=== PATIENT | female | born 2000 | race Caucasian/White ===

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

== ENCOUNTER 2022-08-20 09:34 | Emergency (ER) | payer OTHER, MEDICAID, SELFPAY ==
--- NOTE | ~2022-08-20 | XR_ITS ---
EXAMINATION: XR CHEST CLINICAL INFORMATION: Chest pain COMPARISON: None available. TECHNIQUE: 2 views of the chest were obtained. FINDINGS: No significant abnormality is noted involving the heart, lungs, mediastinum, bony thorax or soft tissues. XR/XR chest 2V IMPRESSION: Unremarkable examination.
[2022-08-20 09:41] VITALS: BP 125/78; PULSE 94; RESP 16; TEMP 36.6; O2SAT 100; BMI 23.8
[2022-08-20 10:09] LABS: Appearance Urine Clear; Color Urine Yellow; Glucose Urine UA Negative (Negative); Leukocyte Esterase Urine Small (1+) (Negative); Nitrite Urine Negative (Negative); PH 6.5 (5.0-9.0); Specific Gravity - Urine 1.015 (1.005-1.025); UMIC TRIGGER UACC YES; Urine Blood Negative (Negative); Urine Ketones Negative (Negative); Urine Protein Negative (Neg-Trace)
[2022-08-20 10:15] LABS: UPreg QC Valid YES; Urine Pregnancy NEGATIVE (NEGATIVE)
[2022-08-20 10:17] LABS: Bacteria Urine Trace (None Seen); Hyaline Casts Urine 0-2 /LPF (0-2); RBC Urine 0-2 /HPF (0-2); UACC Culture Trigger YES; WBC Urine 0-5 /HPF (0-5)
--- NOTE | 2022-08-20 11:51 | ED.GENADULT ---
HPI - General Adult General Chief complaint: General Medical Stated complaint: Chest tightness Time Seen by Provider: 08/20/22 11:51 Source: patient Mode of arrival: ambulatory Limitations: no limitations History of Present Illness HPI narrative: Patient is a 22 year old assigned female at with no reported medical history presenting to the emergency department today with chest pain. Patient states that she has been having central chest pain and difficulty sleeping. Patient denies any dizziness, lightheadedness, abdominal pain, nausea, vomiting, fever, chills, blurry vision, double vision, loss of vision, difficulty breathing, shortness of breath, back pain, night sweats, pain with urination, increased urinary frequency, increased urinary urgency, blood in her urine or stool, syncope or a near syncopal episode, recent trauma or falls, bowel incontinence, bladder incontinence, bowel retention, bladder retention, or any other complaints at this time. Onset (ago): day(s) Severity: mild Severity scale (1-10): 2 Quality: dull Relieving factors: none Exacerbating factors: none Associated symptoms: denies other symptoms Treatments prior to arrival: none Related Data Previous Rx's Medication Instructions Recorded hydroxyzine HCl 25 mg tablet 25 mg PO TID PRN anxiety #20 tabs 02/14/21 Allergies Allergy/AdvReac Type Severity Reaction Status Date / Time No Known Allergies Allergy Verified 02/13/21 16:39 Review of Systems Constitutional: Constitutional: Reports no additional constitutional complaints, Denies chills, Denies fever(s) and Denies night sweats Eyes: Eyes: Reports no additional eye complaints, Denies blurry vision, Denies change in vision, Denies diplopia, Denies eye discharge, Denies loss of vision and Denies eye pain ENT: Denies dizziness Cardiovascular: Cardiovascular: Reports no additional cardiovascular complaints, Reports chest pain, Denies lightheadedness, Denies Loss of Consciousness and Denies dyspnea Respiratory: Respiratory: Reports no additional respiratory complaints and Denies dyspnea Gastrointestinal: Gastrointestinal: Reports no additional gastrointestinal complaints, Denies abdominal pain, Denies melena, Denies hematochezia, Denies change in bowel habits and Denies change in stool character Genitourinary: Genitourinary: Denies hematuria, Denies urinary frequency, Denies dysuria, Denies urinary incontinence, Denies urinary hesitancy and Denies urinary urgency Musculoskeletal: Musculoskeletal: Reports no additional musculoskeletal complaints, Denies numbness and Denies tingling Neurologic: Denies dizziness, Denies loss of vision, Denies numbness and Denies tingling Psychiatric: Psychiatric: Reports no additional psychiatric complaints Endocrine: Endocrine: Reports no additional endocrine complaints Hematologic/Lymphatic: Hematologic/Lymphatic: Reports no additional hematologic/lymphatic complaints Allergic/Immunologic: Allergic/Immunologic: Reports no additional allergic/immunologic complaints [facility] Past Medical History Attestation statement: The following information was validated with the patient. Source: old records reviewed and nursing notes reviewed Social History Social History Patient Tobacco Use Status: Never used Tobacco Use of substances other than those prescribed or required for medical reasons: Yes Substance Use Type: Marijuana Substance Use Frequency: Occasionally Advance Directives: No Advance Directives Information Provided: No Physical Exam ED Vital Signs: Vital Signs - 24 hr 08/20/22 09:41 08/20/22 12:54 Temperature 97.9 F 97.5 F Pulse Rate 94 73 Respiratory Rate 16 16 Blood Pressure 125/78 105/61 Pulse Oximetry 100 99 Oxygen Delivery Method Room Air Room Air BMI result Body Mass Index 23.8 Const General: cooperative, no acute distress, alert and awake Nutritional Appearance: well nourished Orientation/consciousness: patient oriented x3 Limitations: no limitations HENMT Head: Yes normal to inspection and Yes atraumatic Ears: hearing grossly normal bilaterally and external ears normal General nose exam: Normal external nose present, no nasal discharge noted and no epistaxis Face and sinus: Yes normal facial exam, No abrasion and No laceration Mouth: Normal oral and palatal mucosa present, no drooling and no muffled voice Eyes General: appearance normal, both eyes and all related structures Periorbital: periorbital findings normal Eyelids: Yes eyelids normal Conjunctivae: conjunctivae normal Pupils: Equal, round and reactive pupils present EOM: EOMs intact bilaterally Neck Neck: Yes normal visual inspection, Yes full ROM and Yes no lymphadenopathy Chest Chest palpation & inspection: normal inspection of the chest Resp Effort & Inspection: normal respiratory effort and able to speak in complete sentences Auscultation: clear to auscultation bilaterally Cardio Rate: regular rate Rhythm: regular rhythm GI Inspection: Yes normal to inspection Neuro General: patient oriented x3 and moves all extremities Cranial nerves: Yes Equal, round and reactive pupils present Cognition (Neuro): normal cognition Motor exam (neuro): 5/5 motor strength present throughout Sensory Exam: Normal double simultaneous stimulation for sensation Coordination: [id number] test normal Extrem General: Yes normal to inspection, Yes full ROM and Yes capillary refill normal Psych Appearance: grossly normal Mental Status: mental status grossly normal Affect: normal affect Attitude: cooperative Thought process: Normal thought process present Thought content: Normal thought content present Insight: Good insight present (Psych) Medical Decision Making Medical Decision Making [facility] Narrative: Patient is a 22 year old assigned female at with no reported medical history presenting to the emergency department today with chest pain and difficulty sleeping. Patient's physical exam was unremarkable. Patient's blood work was unremarkable. Patient's urine showed no acute process. Patient's EKG was unremarkable. Patient's chest x-ray showed no acute process. I explained my physical exam findings as well as all test results to the patient. I answered all questions asked by the patient. I stressed the importance of the patient taking her medication as prescribed. I stressed the importance of the patient following up with her primary care provider. I stressed the importance of the patient returning to the emergency department immediately if her symptoms were to worsen or if she were to develop any dizziness, shortness of breath, difficulty breathing, chest pain, blurry vision, loss of vision, nausea, vomiting, abdominal pain, fever, chills, back pain, or any other complaints. Patient verbalized agreement and understanding with this treatment plan and discharge. Differential Diagnosis Differential Diagnoses: The differential diagnosis associated with the presentation includes chest pain, anxiety Lab Data [facility] Lab Attestation statement: I reviewed the patient's lab results. 08/20/22 12:30 08/20/22 12:30 Labs: Lab Results 08/20/22 08/20/22 08/20/22 Range/Units 09:56 09:56 12:30 WBC 9.0 (4.8-10.8) X10*3/uL RBC 3.54 L D (4.20-5.50) X10*6/uL Hgb 11.8 L D (12.0-16.0) g/dl Hct 32.6 L D (37.0-47.0) % MCV 92.1 (80.0-98.0) fL MCH 33.3 H (27.0-33.0) pg MCHC 36.2 H (31.0-35.0) g/dl RDW 11.5 (11.0-16.0) % Plt Count 267 (160-400) X10*3/uL MPV 8.6 L (9.4-12.3) fL Immature Gran % (Auto) 0.2 (0.0-0.4) % Neut % (Auto) 56.3 (45-73) % Lymph % (Auto) 33.6 (20-40) % [place] % (Auto) 8.5 (2-11) % Eos % (Auto) 1.0 (0-4) % Baso % (Auto) 0.4 (0-2) % Lymph # (Auto) 3.0 (1.2-4.9) X10*3/uL [place] # (Auto) 0.8 (0.1-1.2) X10*3/uL Eos # (Auto) 0.1 (0.0-0.4) X10*3/uL Baso # (Auto) 0.0 (0.0-0.2) X10*3/uL Abs Immat Gran (auto) 0.02 (0.00-0.03) X10*3/uL Absolute Neuts (auto) 5.0 (2.0-8.3) x10*3/uL Absolute Nucleated RBC 0.000 (0.0-0.012) X10*3/uL Nucleated RBC % (auto) 0.0 (0.0-0.2) /100WBC Sodium (135-145) mmol/L Potassium (3.3-5.1) mmol/L Chloride (96-108) mmol/L Carbon Dioxide (22-29) mmol/L Anion Gap (12-20) BUN (9-16) mg/dL Creatinine (0.5-1.4) mg/dL Estim Creat Clear Calc Estimated GFR Random Glucose (60-115) mg/dL Calcium (8.4-10.2) mg/dL Magnesium (1.6-2.6) mg/dL Total Bilirubin (0.0-1.0) mg/dL AST (5-31) U/L ALT (0-31) U/L Alkaline Phosphatase (39-117) U/L Troponin I High Sens (<3.5-17.0) ng/L Total Protein (6.5-8.0) g/dL Albumin (3.5-5.0) g/dL Urine Color Yellow Urine Appearance Clear Urine pH 6.5 (5.0-9.0) Ur Specific [place] 1.015 (1.005-1.025) Urine Protein Negative (Neg-Trace) mg/dL Urine Glucose (UA) Negative (Negative) mg/dL Urine Ketones Negative (Negative) mg/dL Urine Blood Negative (Negative) Urine Nitrite Negative (Negative) Ur Leukocyte Esterase Small (1+) H (Negative) Urine RBC 0-2 (0-2) /HPF Urine WBC 0-5 (0-5) /HPF Ur Squamous Epith Cells 3-5 (0-2) /HPF Urine Bacteria Trace (None Seen) Hyaline Casts 0-2 (0-2) /LPF Urine Test NEGATIVE (NEGATIVE) COVID-19 (ELENI) (Negative) COVID-19 Clin Com 08/20/22 08/20/22 08/20/22 Range/Units 12:30 12:30 12:30 WBC (4.8-10.8) X10*3/uL RBC (4.20-5.50) X10*6/uL Hgb (12.0-16.0) g/dl Hct (37.0-47.0) % MCV (80.0-98.0) fL MCH (27.0-33.0) pg MCHC (31.0-35.0) g/dl RDW (11.0-16.0) % Plt Count (160-400) X10*3/uL MPV (9.4-12.3) fL Immature Gran % (Auto) (0.0-0.4) % Neut % (Auto) (45-73) % Lymph % (Auto) (20-40) % [place] % (Auto) (2-11) % Eos % (Auto) (0-4) % Baso % (Auto) (0-2) % Lymph # (Auto) (1.2-4.9) X10*3/uL [place] # (Auto) (0.1-1.2) X10*3/uL Eos # (Auto) (0.0-0.4) X10*3/uL Baso # (Auto) (0.0-0.2) X10*3/uL Abs Immat Gran (auto) (0.00-0.03) X10*3/uL Absolute Neuts (auto) (2.0-8.3) x10*3/uL Absolute Nucleated RBC (0.0-0.012) X10*3/uL Nucleated RBC % (auto) (0.0-0.2) /100WBC Sodium 138 (135-145) mmol/L Potassium 3.4 (3.3-5.1) mmol/L Chloride 107 (96-108) mmol/L Carbon Dioxide 26 (22-29) mmol/L Anion Gap 8 L (12-20) BUN 10 (9-16) mg/dL Creatinine 0.69 (0.5-1.4) mg/dL Estim Creat Clear Calc 102.9 Estimated GFR > 60 Random Glucose 79 (60-115) mg/dL Calcium 8.8 D (8.4-10.2) mg/dL Magnesium 1.7 (1.6-2.6) mg/dL Total Bilirubin 0.4 (0.0-1.0) mg/dL AST 37 H (5-31) U/L ALT 15 (0-31) U/L Alkaline Phosphatase 34 L (39-117) U/L Troponin I High Sens < 2.7 (<3.5-17.0) ng/L Total Protein 6.4 L (6.5-8.0) g/dL Albumin 3.6 (3.5-5.0) g/dL Urine Color Urine Appearance Urine pH (5.0-9.0) Ur Specific [place] (1.005-1.025) Urine Protein (Neg-Trace) mg/dL Urine Glucose (UA) (Negative) mg/dL Urine Ketones (Negative) mg/dL Urine Blood (Negative) Urine Nitrite (Negative) Ur Leukocyte Esterase (Negative) Urine RBC (0-2) /HPF Urine WBC (0-5) /HPF Ur Squamous Epith Cells (0-2) /HPF Urine Bacteria (None Seen) Hyaline Casts (0-2) /LPF Urine Test (NEGATIVE) COVID-19 (ELENI) Negative (Negative) COVID-19 Clin Com See Note Independent Interpretation I performed an independent interpretation of an: EKG and Plain X-Ray Interpretation: Vent. Rate: 052 BPM ? ? Atrial Rate: 052 BPM P-R Int: 154 ms? QRS Dur: 082 ms QT Int: 418 ms ? ? ? P-R-T Axes: -06 033 010 degrees QTc Int: 388 ms ? Sinus bradycardia Otherwise normal ECG When compared with ECG of 14-FEB-2021 15:58, Vent. rate has decreased BY? 58 BPM T wave inversion less evident in Inferior leads DD/ 1203 My interpretation is in agreement with the radiologist's impression of this imaging study. EXAMINATION: XR CHEST CLINICAL INFORMATION: Chest pain COMPARISON: None available. TECHNIQUE: 2 views of the chest were obtained. FINDINGS: No significant abnormality is noted involving the heart, lungs, mediastinum, bony thorax or soft tissues. XR/XR chest 2V IMPRESSION: Unremarkable examination. Dictated By: Za Colorado MD Signed By: Electronically signed by Za Colorado MD 08/20/22 [id number] Discharge Plan Discharge Clinical Impression: Chest pain Patient Disposition: Home, Self-Care Instructions: Chest Pain (DC) Additional Instructions: Follow up with your primary care provider. Return to the emergency department immediately if your symptoms worsen or if you develop any dizziness, shortness of breath, difficulty breathing, chest pain, blurry vision, loss of vision, nausea, vomiting, abdominal pain, fever, chills, back pain, or any other complaints. Prescriptions: No Action hydroxyzine HCl 25 mg tablet 25 mg PO TID PRN (Reason: anxiety) Qty: 20 0RF Referrals: [facility] [Provider Group] (Call to establish and follow up with a primary care provider. If you already have a primary care provider, please follow up with them.) [facility] [Provider Group] (Call to establish and follow up with a primary care provider. If you already have a primary care provider, please follow up with them.) [facility] [place] [facility] [Provider Group] (Call to establish and follow up with a primary care provider. If you already have a primary care provider, please follow up with them.) Stand Alone Forms: Work/School Release Print Language: Mozambican
--- NOTE | 2022-08-20 11:57 | ECG_ITS ---
Test Reason : cp Blood Pressure : / mmHG Vent. Rate : 052 BPM Atrial Rate : 052 BPM P-R Int : 154 ms QRS Dur : 082 ms QT Int : 418 ms P-R-T Axes : -06 033 010 degrees QTc Int : 388 ms Sinus bradycardia Otherwise normal ECG When compared with ECG of 14-FEB-2021 15:58, Vent. rate has decreased BY 58 BPM T wave inversion less evident in Inferior leads Referred By: Jane Boyce Electronically Signed By:MCKINLEY DAILEY
[2022-08-20 12:34] LABS: MANUAL DIFF FLAG NO
[2022-08-20 12:47] LABS: Basophils Percent Auto 0.4 % (0-2); Eosinophils Absolute Auto 0.1 X10*3/uL (0.0-0.4); Hematocrit 32.6 % (37.0-47.0); Imm Gran Abs Auto 0.02 X10*3/uL (0.00-0.03); Imm Gran Pct Auto 0.2 % (0.0-0.4); Lymphocytes Percent Auto 33.6 % (20-40); Mean Corpuscular HGB Conc 36.2 g/dl (31.0-35.0); Mean Corpuscular Hemoglobin 33.3 pg (27.0-33.0); Mean Corpuscular Volume 92.1 fL (80.0-98.0); Mean Platelet Volume 8.6 fL (9.4-12.3); Monocytes Absolute Auto 0.8 X10*3/uL (0.1-1.2); Monocytes Percent Auto 8.5 % (2-11); Neutrophils Percent Auto 56.3 % (45-73); Platelet Count 267 X10*3/uL (160-400); Red Blood Count 3.54 X10*6/uL (4.20-5.50); Red Cell Distribution Width 11.5 % (11.0-16.0)
[2022-08-20 12:50] LABS: Hemoglobin 11.8 g/dl (12.0-16.0)
[2022-08-20 12:53] LABS: COVID-19 Test Negative (Negative); IDNOW Serial# 08D9AD1C
[2022-08-20 12:54] VITALS: BP 105/61; PULSE 73; RESP 16; TEMP 36.4; O2SAT 99
[2022-08-20 12:54] LABS: Alanine Aminotransferase 15 U/L (0-31); Albumin Level 3.6 g/dL (3.5-5.0); Alkaline Phosphatase 34 U/L (39-117); Anion Gap 8 (12-20); Aspartate Amino Transferase 37 U/L (5-31); Bilirubin Total 0.4 mg/dL (0.0-1.0); Blood Urea Nitrogen 10 mg/dL (9-16); Calcium 8.8 mg/dL (8.4-10.2); Carbon Dioxide 26 mmol/L (22-29); Chloride 107 mmol/L (96-108); Creatinine Clr Calc Pharmacy 102.9; Estimated Glomerular Filt Rate > 60; Glucose Random 79 mg/dL (60-115); Magnesium 1.7 mg/dL (1.6-2.6); Potassium 3.4 mmol/L (3.3-5.1); Sodium 138 mmol/L (135-145); Total Protein 6.4 g/dL (6.5-8.0)
[2022-08-20 13:13] LABS: Troponin-I High Sensitivity < 2.7 ng/L (<3.5-17.0)
== END 2022-08-20 14:42 | disposition home or self-care (01) ==
PROVIDERS: Physician Assistant Medical; Emergency Provider Emergency Medicine Emergency Medical Services
DX: R07.9 Chest pain, unspecified (principal); G47.00 Insomnia, unspecified; Z20.822 Contact with and (suspected) exposure to COVID-19
CPT/HCPCS: 71046; 80053; 81001; 81025; 83735; 84484; 85025; 87086; 87635; 93005; 99284; 99285

== ENCOUNTER 2023-03-19 18:00 | Emergency (ER) | payer OTHER, SELFPAY ==
--- NOTE | ~2023-03-19 | XR_ITS ---
EXAMINATION: XR CHEST CLINICAL INFORMATION: Coughing COMPARISON: None available. TECHNIQUE: Frontal view of the chest was obtained. FINDINGS: No significant abnormality is noted involving the heart, lungs, mediastinum, bony thorax or soft tissues. XR/XR chest 1V IMPRESSION: Unremarkable chest examination.
[2023-03-19 18:17] VITALS: BP 117/67; PULSE 98; RESP 18; TEMP 37.4; O2SAT 97; BMI 27.1
--- NOTE | 2023-03-19 18:21 | ED.GENADULT ---
[facility] - General Adult General Chief complaint: General Medical Stated complaint: trouble breathing, throat pain, vomiting Time Seen by Provider: 03/19/23 19:11 Source: patient Mode of arrival: ambulatory History of Present Illness HPI narrative: 23-year-old female who presents with a positive sick contact, states that her chest is hurting after multiple episodes of coughing and this has made her throw up otherwise she reports so throat, headache and body aches. Related Data Previous Rx's Medication Instructions Recorded hydroxyzine HCl 25 mg tablet 25 mg PO TID PRN anxiety #20 tabs 02/14/21 Allergies Allergy/AdvReac Type Severity Reaction Status Date / Time No Known Allergies Allergy Verified 02/13/21 16:39 Review of Systems Review of Systems: Pertinent positives and negatives as stated in [facility] Past Medical History Source: nursing notes reviewed Social History Social History Patient Tobacco Use Status: Never used Tobacco Substance Use Type: Marijuana Advance Directives: No Advance Directives Information Provided: No Physical Exam ED Vital Signs: Vital Signs - 24 hr 03/19/23 18:17 Temperature 99.3 F Pulse Rate 98 Respiratory Rate 18 Blood Pressure 117/67 Pulse Oximetry 97 Oxygen Delivery Method Room Air BMI result Body Mass Index 27.1 VITAL SIGNS: Reviewed. GENERAL: Well developed, well nourished, in no acute distress. HEAD: Normocephalic/atraumatic EYES: PERRLA, EOMI EARS: Ext canals without abnormality, TMs non-bulging and non-erythematous NOSE: Nares patent bilateral OROPHARYNX: no oral lesions noted, posterior pharynx clear and non-erythematous without noted tonsillar enlargement/erythema/exudates NECK: Supple, no adenopathy LUNGS: Normal breath sounds, no tachypnea/wheeze/rhonchi/rales. SpO2<97> CARDIOVASCULAR: Regular rate and rhythm without noted murmurs ABDOMEN: Soft, non-tender, non-distended with bowel sounds. MUSCULOSKELETAL: No tenderness, deformities, or effusions noted on gross inspection. EXTREMITIES: No cyanosis, clubbing or edema. SKIN: Inspection of the skin reveals no rashes NEUROLOGIC: Alert and oriented x 4. Strength and sensation to light touch were grossly intact x 4. Course Course Course Narrative: RME: 23 yold female presents to the ED for sore throat, chest pain, subejctive fever and coughing since last . Xray and swabs ordered Medications Administered Discontinued Medications Generic Name Dose Route Start Last Admin Trade Name Anne Marie PRN Reason Stop Dose Admin Acetaminophen 975 mg 03/19/23 19:40 03/19/23 19:49 Acetaminophen 325 Mg Tablet PO 03/19/23 19:41 975 mg ONCE ONE Administration Benzonatate 200 mg 03/19/23 19:40 03/19/23 19:49 Benzonatate 100 Mg Capsule PO 03/19/23 19:41 200 mg ONCE ONE Administration Ibuprofen 400 mg 03/19/23 19:40 03/19/23 19:49 Ibuprofen 400 Mg Tablet PO 03/19/23 19:41 400 mg ONCE ONE Administration Medical Decision Making Medical Decision Making MDM Narrative: 23-year-old female with history and clinical presentation, DDX: Viral syndrome, strep pharyngitis I reviewed all investigations and viral testing is negative for influenza/COVID and rapid strep is negative. Chest x-ray is not significant for infiltrate and otherwise my interpretation is in agreement with radiology's impression. My interpretation is patient likely has a viral syndrome and she was provided with combination analgesics as well as cough medication and discharged home. Differential Diagnosis Differential Diagnoses: The differential diagnosis associated with the presentation includes Please see the discussion above Admission/Observation Consideration of admission/observation: Escalation of care including admission/observation considered Please see the discussion above Lab Data [facility] Lab Attestation statement: I reviewed the patient's lab results. Please see the discussion above Labs: Lab Results 03/19/23 03/19/23 Range/Units 18:31 18:32 Influenza Type A (PCR) NEGATIVE (Negative) Influenza Type B (PCR) NEGATIVE (Negative) RSV RNA Qual (PCR) NEGATIVE (Negative) SARS-CoV-2 RNA (RT-PCR) NEGATIVE (Negative) S. pyogenes GrpA ROSE Negative (Negative) Radiology Impression Discussion of test interpretation with radiology: I have reviewed the radiologist's reading. Radiologist Impression: Please see the discussion above External Record Review External record reviewed: Outpatient record, Prior outpatient labs and Prior outpatient radiology Critical Care Time Critical Care Time Critical Care Time: Yes Total Critical Care Time: 30 Attestation: I personally attest to this time spent taking care of the patient. Discharge Plan Discharge Clinical Impression: Viral syndrome Patient Disposition: Home, Self-Care Instructions: Viral Syndrome (ED) Additional Instructions: 1. Recommend elah-ukm-mrkgput Tylenol/ibuprofen as needed for headaches, body aches, temperatures greater than 100.4. 2. Get plenty of rest and drink plenty of fluids. 3. Follow-up with primary care doctor. Return to the ER for any worsening symptoms. Prescriptions: No Action hydroxyzine HCl 25 mg tablet 25 mg PO TID PRN (Reason: anxiety) Qty: 20 0RF Interventions: ED Discharge Assessment Last Done: 03/19/23 19:54 Discharge Date/Time: 03/19/23 19:54
[2023-03-19 18:52] LABS: IDNOW Serial# 08D9AD1C; Strep A Nucleic Acid Negative (Negative)
[2023-03-19 19:18] LABS: Influenza A PCR NEGATIVE (Negative); Influenza B PCR NEGATIVE (Negative); Resp Syncy Virus RNA Qual PCR NEGATIVE (Negative); SARS COV2 PCR INHOUSE NEGATIVE (Negative)
[2023-03-19] MEDS: Ibuprofen 400 MG TABLET PO (19:49)
[2023-03-19] MEDS: Benzonatate 100 MG CAPSULE 200 MG PO (19:49)
[2023-03-19] MEDS: Acetaminophen 325 MG TABLET 975 MG PO (19:49)
--- NOTE | 2023-03-19 19:51 | PC.NURSE ---
pt medicated per MAR
== END 2023-03-19 19:54 | disposition home or self-care (01) ==
PROVIDERS: Physician Assistant; Emergency Provider Student in an Organized Health Care Education/Training Program
DX: B34.9 Viral infection, unspecified (principal); R05.9 Cough, unspecified; R06.02 Shortness of breath; Z20.822 Contact with and (suspected) exposure to COVID-19; Z20.828 Contact with and (suspected) exposure to other viral communicable diseases
CPT/HCPCS: 0241U; 71045; 87651; 99283

== ENCOUNTER 2024-10-26 21:02 | Emergency (ER) | payer OTHER, SELFPAY ==
[2024-10-26 21:32] VITALS: BP 108/55; PULSE 85; RESP 18; TEMP 37.2; O2SAT 98; BMI 32.0
[2024-10-26 21:54] LABS: MANUAL DIFF FLAG NO
[2024-10-26 22:03] LABS: UPreg QC Valid YES
[2024-10-26 22:07] LABS: Alanine Aminotransferase 14 U/L (0-31); Albumin Level 4.3 g/dL (3.5-5.0); Alkaline Phosphatase 50 U/L (39-117); Anion Gap 12 (12-20); Aspartate Amino Transferase 20 U/L (5-31); Blood Urea Nitrogen 10 mg/dL (9-16); Calcium 9.1 mg/dL (8.4-10.2); Carbon Dioxide 24 mmol/L (22-29); Chloride 108 mmol/L (96-108); Creatinine Clr Calc Pharmacy 101.2; Estimated Glomerular Filt Rate > 60; Potassium 3.5 mmol/L (3.3-5.1); Sodium 140 mmol/L (135-145); Total Protein 7.3 g/dL (6.5-8.0)
[2024-10-26 22:14] LABS: Hematocrit 35.8 % (37.0-47.0); Hemoglobin 13.0 g/dl (12.0-16.0); Imm Gran Abs Auto 0.01 X10*3/uL (0.00-0.03); Imm Gran Pct Auto 0.1 % (0.0-0.4); Lymphocytes Absolute Auto 3.0 X10*3/uL (1.2-4.9); Mean Corpuscular HGB Conc 36.3 g/dl (31.0-35.0); Mean Corpuscular Hemoglobin 32.7 pg (27.0-33.0); Mean Corpuscular Volume 90.2 fL (80.0-98.0); NRBC Abs Auto 0.000 X10*3/uL (0.0-0.012); NRBC Pct Auto 0.0 /100WBC (0.0-0.2); Platelet Count 294 X10*3/uL (160-400); Red Blood Count 3.97 X10*6/uL (4.20-5.50); White Blood Count 7.0 X10*3/uL (4.8-10.8)
--- OUTSIDE RECORDS SUMMARY | 2024-10-26 23:28 | XMS_ITS | Clinical Summary ---
Author Organization [facility] Address [address] [address] Phone Care Team Providers Care Fishing Hand Name Role Phone Pcp, Unknown Primary Care Provider Unavailabl e Allergies No known active allergies Medications No known medications Social History Tobacco Use Types Packs/Day Years Used Date Smoking Tobacco: Never Passive Smoke Exposure: Never Smokeless Tobacco: Never Tobacco Cessation:Counseling Given: Not Answered Alcohol Use Standard Drinks/Week Comments Yes 0 (1 standard drink = 0.6 oz pur e alcohol) social Education Answer Date Recorded Are you interested in more education? Not on noel e 02/13/2024 Are you concerned about learning? Not on file 02/13/2024 No 02/13/2024 No 02/13/2024 Digital Access Answer Date Recorded No 02/13/2024 No 02/13/2024 Reliable internet access at home? Not on file 02/13/2024 Device with a working camera? Not on file Intimate Partner Violence Answer Date R ecorded Are you denied basic needs s uch as food, clothing, or medical care? No 02/13/2024 In the past 12 months have y ou been in a relationship with a person who hurts, threatens, or tries to control you? No 02/13/2024 Are you denied basic needs s uch as food, clothing, or medical care? No 02/13/2024 In the past 12 months have y ou been in a relationship with a person who hurts, threatens, or tries to control you? No 02/13/2024 Comments Unknown Sex and Gender Information Value Date Recorded Sex Assigned at Female 02/13/2024 2:40 PM EST Legal Sex Female 2:41 PM EST Gender Identity Female 02/13/2024 2:40 PM EST Sexual Orientation Straight 02/13/2024 2: 40 PM EST Last Filed Vital Signs Vital Sign Reading Time Taken Comments Blood Pressure 95/62 02/13/2024 6:15 PM EST Pulse 72 02/13/2024 6:15 PM EST Temperature 36.6 C (97.9 F) 02/13/2024 6:15 PM EST Respiratory Rate 16 02/13/2024 6:15 PM EST Oxygen Saturation 97% 02/13/2024 6:15 PM EST Inhaled Oxygen Concentration - - Weight 72.1 kg (159 lb) 02/13/2024 2:36 PM EST Height 157.5 cm (5' 2 ) 02/13/2024 2:36 PM EST Body Mass Index 29.08 02/13/2024 2:36 PM EST Plan of Treatment Health Maintenance Due Date Last Done Comments DEPRESSION SCREENING 2014 SMOKING Hx and SMOKELESS TOB ACCO SCREENING 2015 HPV VACCINES (1 - 3-dose series) 2017 CHLAMYDIA SCREENING 2018 MENINGOCOCCAL VACCINES (B) ( 1 of 2 - Standard) 2018 HEPATITIS C SCREENING 01/12/2020 HIV ONE-TIME SCREENING (18-6 5 YEARS) 01/12/2020 PAP SMEAR 2023 Adult Td,Tdap Booster 09/11/2023 09/10/2013 COVID-19 VACCINE (1 - 2023-2 5 season) 2023 HEPATITIS A VACCINES Aged Out No long er eligible based on patient's age to complete this topic HIB VACCINES Aged Out No longer eligi ble based on patient's age to complete this topic MENINGOCOCCAL VACCINES (ACWY) Aged Out No longer eligible based on patient's age to complete this topic PNEUMOCOCCAL VACCINES (0-49 years) Aged Out No longer eligible based on patient's age to complete this topic Medical Devices Not on file Insurance [facility] Member Subscriber Plan / Payer (Ef fective 2024-Present) Name:Nirav Cotton Relation to Subscriber:Self Name:Nirav Cotton Payer ID:Not on file Type:O Address: [place] [id number] Care Teams Fishing Hand Relationship Specialty Start Date End Date Pcp, Unknown PCP - General 02/13/24 Additional Source Comments The information contained in this document represents components of the legal health record. It is not the complete legal health record.[facility]
--- OUTSIDE RECORDS SUMMARY | 2024-10-26 23:28 | XMS_ITS ---
Author Name [facility] Organization Unknown Care Team Organization Name Specialty Phone Email Start Date End Da te [facility] Kerry Garcia Primary Care 10/03/20222023 [facility] Lidia, JEREMIAH Primary Care 06/05/202210/29 [facility] Isabella Lenz Primary Care 02/05/2022 11/17/2023
--- OUTSIDE RECORDS SUMMARY | 2024-10-26 23:28 | XMS_ITS | Clinical Summary ---
Author Organization [facility] Facility Address [address] [place] [id number] Care Team Providers Care Flight Controls Engineer Name Role Phone Destiny Gerber DANIELLE Primary Care Provider [phone] Family History Medical History Relation Comments Diabetes Father paternal grandpa rents Hypertension Father Diabetes Mother and maternal gra ndmother Heart disease Mother maternal grandfa ther Hypertension Mother and maternal gra ndmother Kidney disease Mother kidney stones, g randmother - kidney cancer Relation Status Comments Father Mother Social History Tobacco Use Types Packs/Day Years Used Date Smoking Tobacco: Never Alcohol Use Standard Drinks/Week Comments No 0 (1 standard drink = 0.6 oz pur e alcohol) Comments Unknown Sex and Gender Information Value Date Recorded Sex Assigned at Not on file Legal Sex Female 4:52 PM EST Gender Identity Not on file Sexual Orientation Not on file Plan of Treatment Health Maintenance Due Date Last Done Comments Hepatitis B Vaccine (1 of 3 - 19+ 3-dose series) 2021 Influenza Vaccine (#1) 2024 Pneumococcal Vaccine: Peds ( 0 to 5 Years) and At-Risk Patients (6 to 49 Years) Aged Out No longer eligible b ased on patient's age to complete this topic [facility] Care Teams Flight Controls Engineer Relationship Specialty Start Date End Date Destiny Gerber NP PCP - General Nurse Practitioner 07/18/20
--- OUTSIDE RECORDS SUMMARY | 2024-10-26 23:28 | XMS_ITS | Encounter Summary ---
Author Organization [facility] Address [address] [place] [address] Care Team Providers Care Nurse Wound Care Name Role Phone NayanIsabella ceballos Primary Care Provider [phone] Encounter Details Date Type Department Care Team (Late st Contact Info) Description 04/29/2024 Lab Requisition [facility] - Main Lab [address] Replaced By [facility] [place] [address] Brayden Bruno MD [address] [facility] [address] [place] [address] Urinary tract infection, site not specified Social History Tobacco Use Types Packs/Day Years Used Date Smoking Tobacco: Never Smokeless Tobacco: Never Alcohol Use Standard Drinks/Week Comments Yes 0 (1 standard drink = 0.6 oz pur e alcohol) Comments Unknown Sex and Gender Information Value Date Recorded Sex Assigned at Not on file Legal Sex Female 10:26 AM EST Gender Identity Not on file Sexual Orientation Not on file documented as of this encounter Plan of Treatment Not on file documented as of this encounter Procedures Procedure Name Priority Date/Time Associated Diagnosis Comments CULTURE URINE Routine 04/29/2024 2:30 PM EST Urinary tract infection, site not specified documented in this encounter Results * Culture urine (04/29/2024 2:30 PM EST) Culture, Urine No growth 04/30/2024 2:23 PM EST [facility] Urine Urine specimen obtained by clean catch procedure / Unknown Non-blood Collection / Unknown 04/29/2024 2:30 PM EST 04/29/2024 6:27 PM EST us Brayden Bruno MD LAB MICROBIOLOGY - GENERAL ORDERABLES Final Result [facility] [address] [place] [address], documented in this encounter Visit Diagnoses Diagnosis Urinary tract infection, site not specified documented in this encounter Care Teams Nurse Wound Care Relationship Specialty Start Date End Date Isabella Lenz DO [address] [place] [address] PCP - General Pediatrics 04/20/21 documented as of this encounter
--- OUTSIDE RECORDS SUMMARY | 2024-10-26 23:28 | XMS_ITS | Data Portability ---
Author Organization [facility] [address] Address [address] [place] [address] Assessment No assessment recorded. Plan of Treatment Reminders Order Date Submit Date Provider Last Modified By Organization Details Last Modified Time Details Appointments None recorded. Lab urinalysis , dipstick 2022 023 [email or web address] 247 [facility], [address] [place] [address], [phone], 3 09:32:08 test, urine 2022 023 [facility] _[facility], [address] [place] [address], [phone], 3 09:32:08 culture, urine 2022 023 [facility], [address] [place] [address], [phone], 3 09:47:45 Referral None recorded. Procedures None recorded. Surgeries None recorded. Imaging None recorded. Medication Orders Pyridium 100 mg tablet 2022 023 [facility] #[id number], [address] [place] [address], [id number], 3 09:32:27 Bactrim DS 800 mg-160 mg tablet 2022 023 [facility] #[id number], [address] [place] [address] St, [place], [phone], 09:32:27 Patient TargetsNo targets recorded. Patient InstructionsNo instructions recorded. Reason for Referral None Reported. Results Created Date Observation Date Name Description Value Unit Range Abnormal Flag Note LastModifiedBy Organization Detail LastModifiedTime 04/05/19 23 04/07/2022 URINE CULTU RE, ROUTI NE urine culture, routine FINAL REPORT Not Available [facility] ([facility]) [address] [place], [address], 04/07/2022 08:06:37 04/05/1904/07/2022 URINE CULTU RE, ROUTI NE result 1 COMMEN T Mixed uroge nital meredith 10,00 0-25, 000 colon y formi ng units per mL Not Available [facility] ([facility]) [address] [facility], [place], [address], 04/07/2022 08:06:37 04/05/19 23 04/05/2022 urina lysis , dipst ick Unknown Analyte Normal = light yellow Not Available [address], [address], 04/05/2022 08:57:24 04/05/19 23 04/05/2022 urina lysis , dipst ick Unknown Analyte Normal = clear Not Available [address] [place] [address], [address], 04/05/2022 08:57:24 04/05/19 23 04/05/2022 urina lysis , dipst ick Unknown Analyte Normal = negati ve Not Available [address] [place] [address], [address], 04/05/2022 08:57:24 04/05/19 23 04/05/2022 urina lysis , dipst ick Unknown Analyte Normal = Negati ve Not Available [address], [place], [address], 04/05/2022 08:57:24 04/05/1904/05/2022 urina lysis , dipst ick Unknown Analyte Normal = Negati ve Not Available [facility] [address], [place], [address], 04/05/2022 08:57:24 04/05/1904/05/2022 urina lysis , dipst ick Unknown Analyte Normal = 1.010, 1.015, 1.020 Not Available [facility] [address], [place], [address], 04/05/2022 08:57:24 04/05/19 23 04/05/2022 urina lysis , dipst ick Unknown Analyte Normal = Negati ve Not Available [facility] [address], [place], [address], 04/05/2022 08:57:24 04/05/1904/05/2022 urina lysis , dipst ick Unknown Analyte Normal = 6.5, 7.0, 7.5, 8.0 Not Available [facility] [address], [place], [address], 04/05/2022 08:57:24 04/05/1904/05/2022 urina lysis , dipst ick Unknown Analyte Normal = Negati ve Not Available [facility] [address], [place], [address], 04/05/2022 08:57:24 04/05/19 23 04/05/2022 urina lysis , dipst ick Unknown Analyte Normal = 0.2, 1.0 Not Available [address] [place] [address], [place], [address], 04/05/2022 08:57:24 04/05/19 23 04/05/2022 urina lysis , dipst ick Unknown Analyte Normal = Negati ve Not Available kiran dye [address], [place], [address], 04/05/2022 08:57:24 04/05/19 23 04/05/2022 urina lysis , dipst ick Unknown Analyte Normal = Negati ve Not Available kiran dye [address], [place], [address], 04/05/2022 08:57:24 04/05/19 23 04/05/2022 urina lysis , dipst ick Unknown Analyte Red Not Available veronica [address], [place], [place], [address], 04/05/2022 08:57:24 04/05/19 23 04/05/2022 urina lysis , dipst ick Unknown Analyte Other Not Available veronica [address], [place], [address], 04/05/2022 08:57:24 04/05/19 23 04/05/2022 urina lysis , dipst ick Unknown Analyte Negati ve Not Available kiran dye [address], [place], [address], 04/05/2022 08:57:24 04/05/19 23 04/05/2022 urina lysis , dipst ick Unknown Analyte Large Not Available veronica [address], [place], [address], 04/05/2022 08:57:24 04/05/19 23 04/05/2022 urina lysis , dipst ick Unknown Analyte 15 mg/dL Not Available kiran dye [address], [place], [address], 04/05/2022 08:57:24 04/05/19 23 04/05/2022 urina lysis , dipst ick Unknown Analyte 1.025 Not Available [facility] [address], [place], [address], 04/05/2022 08:57:24 04/05/19 23 04/05/2022 urina lysis , dipst ick Unknown Analyte Large Not Available [address], [place], [address], 04/05/2022 08:57:24 04/05/1904/05/2022 urina lysis , dipst ick Unknown Analyte 5.5 Not Available [address], [place], [address], 04/05/2022 08:57:24 04/05/19 23 04/05/2022 urina lysis , dipst ick Unknown Analyte 300 mg/dL Not Available kiran [address], [place], [address], 04/05/2022 08:57:24 04/05/19 23 04/05/2022 urina lysis , dipst ick Unknown Analyte 2.0 E.U./d L Not Available kiran [address], [place], [address], 04/05/2022 08:57:24 04/05/19 23 04/05/2022 urina lysis , dipst ick Unknown Analyte Negati ve Not Available kiran [address], [place], [address], 04/05/2022 08:57:24 04/05/19 23 04/05/2022 urina lysis , dipst ick Unknown Analyte Large Not Available chicope [address], [address], 04/05/2022 08:57:24 04/05/1904/05/2022 pregn samira test, urine Unknown Analyte Normal = Negati ve Not Available [address], [address], 04/05/2022 08:57:24 04/05/19 23 04/05/2022 pregn samira test, urine Unknown Analyte negati ve Not Available [address]99_[address] dye [address], [address], 04/05/2022 08:57:24 Result Notes None recorded. Problems No Known Problems Medical Equipment None Reported. Allergies No known drug allergies Medications Name Sig Start Date Stop Date Status Note LastModified by Organization Details LastModified Time Pyridium 100 mg tablet Take 1 tablet 3 times a day by oral route for 2 days. 2022 active Not Available Not Available Not Avai lable Bactrim DS 800 mg-160 mg tablet Take 1 tablet every 12 hours by oral route for 7 days. 2022 active Not Available Not Available Not Avai lable Estarylla 0.25 mg-0.035 mg tablet TAKE 1 TABLET BY MOUTH DAILY 04/05 completed Not Available Not Available Not Available BinaxNOW COVID-19 Ag Self Test kit TEST DIRECTED TODAY 04/05 completed Not Available Not Available Not Available Vitals Date Recorded Body height Body mass index (BMI) [Percentile] Per age and sex Body mass index (BMI) Body weight Body temperature Respiratory rate Heart rate Oxygen saturation Oxygen saturation in Arterial blood by Pulse oximetry Systolic And Diastolic Provider Name and Address Organization Details Last Updated DateTime 3 160.02 cm 77 % 24.8 kg/m2 42275.9 3 g 97.8 [degF] 18 /min 88 /min 100 % 100 % 108/73 mm[Hg] MANAV CROWLEY - [facility] 3 09:02:36 Social History Question Answer Notes LastModified by Organizat ion Details LastModified Time Tobacco Smoking Status Current Every Day Smoker CARLINE Stovall - [facility] 04/05/2022 09:00:24 What Is Your Water Source? City Information not available 04/05/2022 What Is Your Heat Source? Gas Information not available 04/05/2022 Have You Had Direct Contact, Or Contact During Intimacy, With Monkeypox Rash, Scabs, Or Body Fluids From A Person With Monkeypox? No Information not available 04/05/2022 Have You Recently Traveled Abroad? No Information not available 04/05/2022 Sex: Unknown Functional Status Question Answer Note LastModified by Organizat ion Details LastModified Time Do you use any illicit or recreational drugs? No Information not available 04/05/2022 Do you or have you ever used any other forms of tobacco or nicotine? No Information not available 04/05/2022 What is your level of alcohol consumption? Occasional Information not available 04/05/2022 Mental Status None recorded. Family History Relationship Description Onset Age of this Age Resolved Age Notes LastModified by Organization Details LastModified Time Father No current problems or disability Not available 08:59:59 Mother No current problems or disability Not available 08:59:59 Medical History No medical history recorded. Gynecological History Statement/Question Response Date of LMP 03/13/2022 Obstetrics History GPAL:G 0 P 0 0 0 0 Past Encounters Encounter ID Performer Location Encounter Start Date Encounter Closed Date Diagnosis/Indication Diagnosis SNOMED-CT Code Diagnosis ICD10 Code Diagnosis Note [id number] [address] [address] [address] [facility] [place] [address] 11/18/2017 17:29:29 11/18/2017 18:20:06 [id number] [address] [place] [address] 09/10/2018 19:02:55 09/10/2018 20:24:35 [id number] [address] [address] [address] [place] [address] 12/10/2016 13:16:02 12/10/2016 13:45:41 [id number] [address] [address] [place] [address] 03/07/2016 09:06:35 03/07/2016 09:43:18 [id number] [address] [address] [place] [address] 12/11/2018 19:15:11 12/11/2018 19:53:43 [id number] [address] [address] [place] [address] 04/18/2017 16:27:39 04/18/2017 17:49:44 [id number] [address] [address] [place] [address] 05/14/2020 17:35:20 05/14/2020 18:26:06 [id number] [address] [address] [place] [address] 02/17/2017 17:29:41 02/17/2017 18:39:10 [id number] AMBREEN CARVAJAL MD [address] [address] [place] [address] 04/05/2022 08:09:50 04/05/2022 09:33:08 Acute urinary tract infection 668390367 N39.0 Health Concerns Section Related Observation LastModified by Organization Detai ls LastModified Time None Recorded Concern Status LastModified by Organization Details LastModified Time None Recorded Advance Directives Directive None Recorded Payers Insurance Date Sequence Insurance Name Policy Number Policy Zaldivar Covered Member ID Zaldivar Member ID Guarantor Name 04/05/2022 1 [facility] [id number] Nirav Cotton [id number] Bev Burnett OBGyn Episode No OBEpisode recorded.
[2024-10-26 23:38] VITALS: BP 99/55; PULSE 70; RESP 18; TEMP 36.7; O2SAT 100
--- NOTE | 2024-10-26 23:46 | ED.ANXIETY ---
HPI - Anxiety General Chief Complaint: Anxiety Stated Complaint: Panic attack/SOB Time Seen by Provider: 10/26/24 23:19 Source: patient Mode of arrival: ambulatory Limitations: no limitations History of Present Illness ED Provider: HPI narrative: Patient's history of anxiety and panic attacks take hydroxyzine off and on comes here for having a panic attack reason unknown denies any depression no suicidal feeling Related Data Previous Rx's ?Medication ?Instructions ?Recorded hydroxyzine HCl 25 mg tablet 25 mg PO TID PRN anxiety #20 tabs 02/14/21 buspirone 5 mg tablet 5 mg PO BID #60 tabs 10/26/24 Allergies Allergy/AdvReac Type Severity Reaction Status Date / Time No Known Allergies Allergy Verified 10/26/24 21:39 Review of Systems Review of Systems: Yes all other systems are reviewed and are negative [facility] Social History Social History Patient Tobacco Use Status: Never used Tobacco Substance Use Type: Marijuana Advance Directives: Yes Advance Directives Information Provided: Yes Advance Directives on File: No Physical Exam Vital Signs: Vital Signs: Last Vital Signs Temp 98.1 F 10/27/24 00:10 Pulse 70 10/27/24 00:10 Resp 18 10/27/24 00:10 BP 99/55 L 10/27/24 00:10 Pulse Ox 100 10/27/24 00:10 O2 Del Method Room Air 10/27/24 00:10 BMI result Body Mass Index 32.0 Appearance: Alert. Oriented X3. No acute distress. Anxious crying Eyes: PERRLA, No Nystagmus ENT: Pharynx normal. Oral Mucosa moist Neck: Normal inspection. Neck supple. CVS: Normal heart rate and rhythm. Pulses normal. Respiratory: No respiratory distress. Equal air entry bilateral, no wheezing/rales/rhonchi Abdomen: Soft and nontender. Bowel sounds are present, no mass palpable, no CVA tenderness Skin: Skin warm and dry. Normal skin color. Normal skin turgor. Extremities: No lower extremity edema. No calf tenderness psych: Anxious crying tearful denies any significant depression no suicidal feeling Neuro: Oriented X 3. No motor deficit. No sensory deficit.No cerebellar signs , cranial nerves II-XII intact Medications Administered Discontinued Medications Generic Name Dose Route Start Last Admin Trade Name Freq PRN Reason Stop Dose Admin Lorazepam 1 mg 10/26/24 23:47 10/26/24 23:55 Lorazepam 1 Mg Tablet PO 10/26/24 23:48 1 mg ONCE ONE Administration Medical Decision Making Medical Decision Making [facility] Narrative: Patient with panic/anxiety attack will prescribe BuSpar advised to continue hydroxyzine as needed Lab Data [facility] Lab Attestation statement: I reviewed the patient's lab results. 10/26/24 21:50 10/26/24 21:50 Labs: Lab Results 10/26/24 10/26/24 Range/Units 21:50 21:56 WBC 7.0 (4.8-10.8) X10*3/uL RBC 3.97 L (4.20-5.50) X10*6/uL Hgb 13.0 (12.0-16.0) g/dl Hct 35.8 L (37.0-47.0) % MCV 90.2 (80.0-98.0) fL MCH 32.7 (27.0-33.0) pg MCHC 36.3 H (31.0-35.0) g/dl RDW 11.3 (11.0-16.0) % Plt Count 294 (160-400) X10*3/uL MPV 8.5 L (9.4-12.3) fL Immature Gran % (Auto) 0.1 (0.0-0.4) % Neut % (Auto) 46.8 (45-73) % Lymph % (Auto) 42.9 H (20-40) % Dougherty % (Auto) 7.6 (2-11) % Eos % (Auto) 1.9 (0-4) % Baso % (Auto) 0.7 (0-2) % Lymph # (Auto) 3.0 (1.2-4.9) X10*3/uL Dougherty # (Auto) 0.5 (0.1-1.2) X10*3/uL Eos # (Auto) 0.1 (0.0-0.4) X10*3/uL Baso # (Auto) 0.1 (0.0-0.2) X10*3/uL Abs Immat Gran (auto) 0.01 (0.00-0.03) X10*3/uL Absolute Neuts (auto) 3.3 (2.0-8.3) x10*3/uL Absolute Nucleated RBC 0.000 (0.0-0.012) X10*3/uL Nucleated RBC % (auto) 0.0 (0.0-0.2) /100WBC Sodium 140 (135-145) mmol/L Potassium 3.5 (3.3-5.1) mmol/L Chloride 108 (96-108) mmol/L Carbon Dioxide 24 (22-29) mmol/L Anion Gap 12 (12-20) BUN 10 (9-16) mg/dL Creatinine 0.85 (0.5-1.4) mg/dL Estim Creat Clear Calc 101.2 Estimated GFR > 60 Random Glucose 106 (60-115) mg/dL Calcium 9.1 (8.4-10.2) mg/dL Total Bilirubin 0.4 (0.0-1.0) mg/dL AST 20 (5-31) U/L ALT 14 (0-31) U/L Alkaline Phosphatase 50 (39-117) U/L Total Protein 7.3 (6.5-8.0) g/dL Albumin 4.3 (3.5-5.0) g/dL Urine Test NEGATIVE (NEGATIVE) Discharge Plan Discharge Clinical Impression: Acute anxiety, Panic disorder Patient Disposition: Home, Self-Care Instructions: Anxiety (ED) Additional Instructions: Start taking BuSpar as prescribed and follow up with your psychiatrist Continue take hydroxyzine for acute attack Prescriptions: New buspirone 5 mg tablet 5 mg PO BID Qty: 60 0RF No Action hydroxyzine HCl 25 mg tablet 25 mg PO TID PRN (Reason: anxiety) Qty: 20 0RF Interventions: ED Discharge Assessment Last Done: 10/27/24 00:10 Discharge Date/Time: 10/27/24 00:11 Print Language: Bulgarian
[2024-10-27 00:10] VITALS: BP 99/55; PULSE 70; RESP 18; TEMP 36.7; O2SAT 100
== END 2024-10-27 00:11 | disposition home or self-care (01) ==
PROVIDERS: Emergency Provider Internal Medicine
DX: F41.9 Anxiety disorder, unspecified (principal); F41.0 Panic disorder [episodic paroxysmal anxiety]; Z79.899 Other long term (current) drug therapy
CPT/HCPCS: 36415; 80053; 81025; 85025; 99283

== ENCOUNTER 2025-03-11 21:17 | Emergency (ER) | payer OTHER, SELFPAY ==
--- NOTE | ~2025-03-11 | XR_ITS ---
CLINICAL HISTORY: sob 2 view chest x-ray Comparison: CR/SR - XR CHEST 2 VIEWS - 03/19/23 18:38 EST Findings: No consolidation or effusion. Heart size is normal. No acute fracture. IMPRESSION: 1. No acute findings. This document has been electronically signed by: Mary Wasserman MD on 03/11/2025 22:26:34
[2025-03-11 21:44] VITALS: BP 113/60; PULSE 83; RESP 18; TEMP 36.7; O2SAT 98; BMI 31.9
[2025-03-11 21:58] LABS: MANUAL DIFF FLAG NO
[2025-03-11 22:10] LABS: Hematocrit 34.9 % (37.0-47.0); Hemoglobin 12.3 g/dl (12.0-16.0); Imm Gran Abs Auto 0.02 X10*3/uL (0.00-0.03); Imm Gran Pct Auto 0.3 % (0.0-0.4); Lymphocytes Absolute Auto 2.5 X10*3/uL (1.2-4.9); Mean Corpuscular HGB Conc 35.2 g/dl (31.0-35.0); Mean Corpuscular Hemoglobin 32.5 pg (27.0-33.0); Mean Corpuscular Volume 92.3 fL (80.0-98.0); NRBC Abs Auto 0.000 X10*3/uL (0.0-0.012); NRBC Pct Auto 0.0 /100WBC (0.0-0.2); Platelet Count 360 X10*3/uL (160-400); Red Blood Count 3.78 X10*6/uL (4.20-5.50); White Blood Count 7.8 X10*3/uL (4.8-10.8)
[2025-03-11 22:15] LABS: Alanine Aminotransferase 18 U/L (0-31); Albumin Level 4.1 g/dL (3.5-5.0); Alkaline Phosphatase 65 U/L (39-117); Anion Gap 10 (12-20); Aspartate Amino Transferase 22 U/L (5-31); Blood Urea Nitrogen 12 mg/dL (9-16); Calcium 9.4 mg/dL (8.4-10.2); Carbon Dioxide 30 mmol/L (22-29); Chloride 106 mmol/L (96-108); Creatinine Clr Calc Pharmacy 138.5; Estimated Glomerular Filt Rate > 60; Potassium 3.7 mmol/L (3.3-5.1); Sodium 142 mmol/L (135-145); Total Protein 7.4 g/dL (6.5-8.0)
[2025-03-11 22:44] LABS: Resp Syncy Virus RNA Qual PCR NEGATIVE (Negative); SARS COV2 PCR INHOUSE NEGATIVE (Negative)
--- NOTE | 2025-03-11 23:11 | ED.GENADULT ---
HPI - General Adult General Chief complaint: Upper Respiratory Symptoms Stated complaint: Difficulty breathing dx with bronchitis 5 days ago Time Seen by Provider: 03/11/25 23:08 Source: patient Limitations: no limitations History of Present Illness HPI narrative: 25-year-old female presents for evaluation of the one-week history of shortness of breath and cough. Patient states she has had a dry nonproductive cough during this time. She feels as though symptoms worsened when she is supine. She has also had some hoarseness. She has been eating and drinking normally. Unknown if any sick contacts. She is otherwise feeling well. Patient states she went to urgent care today where she was prescribed albuterol inhaler, benzonatate, and prednisone. Patient does not feel that she received adequate care and therefore reports to the emergency department today. Related Data Previous Rx's ?Medication ?Instructions ?Recorded hydroxyzine HCl 25 mg tablet 25 mg PO TID PRN anxiety #20 tabs 02/14/21 buspirone 5 mg tablet 5 mg PO BID #60 tabs 10/26/24 Allergies Allergy/AdvReac Type Severity Reaction Status Date / Time No Known Allergies Allergy Verified 03/11/25 21:46 Review of Systems Review of Systems: Yes all other systems are reviewed and are negative Constitutional: Constitutional: Denies headache(s) ENT: Denies headache(s) Respiratory: Respiratory: Denies chest congestion, Reports cough and Denies wheezing Neurologic: Denies headache(s) Allergic/Immunologic: Allergic/Immunologic: Denies wheezing PMFSH Social History Social History Patient Tobacco Use Status: Never used Tobacco Substance Use Type: Marijuana Advance Directives: No Advance Directives Information Provided: Yes Physical Exam ED Vital Signs: Vital Signs - 24 hr 03/11/25 21:44 Temperature 98.1 F Pulse Rate 83 Respiratory Rate 18 Blood Pressure 113/60 Pulse Oximetry 98 Oxygen Delivery Method Room Air BMI result Body Mass Index 31.9 Const General: alert and awake HENMT Other: Auditory canals are patent. TMs are clear. Nares are patent, no discharge oropharynx is moist. No exudate. Speaks full clear sentences. Neck Neck: No positive Brudzinski's sign Resp Other: Lung sounds clear throughout Cardio Rate: regular rate Rhythm: regular rhythm Medical Decision Making Medical Decision Making MDM Narrative: 25-year-old female with a one-week history of cough. Labs and imaging today are unremarkable, no evidence of pneumonia. Patient does not have any risk factors for PE. She is hemodynamically stable and afebrile. Patient will continue current medications which include prednisone, benzonatate and albuterol. No indication for antibiotics. Patient expresses understanding of all discharge instructions and has no further questions at this time. Differential Diagnosis Differential Diagnoses: The differential diagnosis associated with the presentation includes Pneumonia Bronchitis Viral syndrome URI Lab Data [facility] Lab Attestation statement: I reviewed the patient's lab results. 03/11/25 21:53 03/11/25 21:53 Labs: Lab Results 03/11/25 Range/Units 21:53 WBC 7.8 (4.8-10.8) X10*3/uL RBC 3.78 L (4.20-5.50) X10*6/uL Hgb 12.3 (12.0-16.0) g/dl Hct 34.9 L (37.0-47.0) % MCV 92.3 (80.0-98.0) fL MCH 32.5 (27.0-33.0) pg MCHC 35.2 H (31.0-35.0) g/dl RDW 11.4 (11.0-16.0) % Plt Count 360 (160-400) X10*3/uL MPV 8.0 L (9.4-12.3) fL Immature Gran % (Auto) 0.3 (0.0-0.4) % Neut % (Auto) 58.1 (45-73) % Lymph % (Auto) 31.7 (20-40) % Saline % (Auto) 8.2 (2-11) % Eos % (Auto) 1.2 (0-4) % Baso % (Auto) 0.5 (0-2) % Lymph # (Auto) 2.5 (1.2-4.9) X10*3/uL Saline # (Auto) 0.6 (0.1-1.2) X10*3/uL Eos # (Auto) 0.1 (0.0-0.4) X10*3/uL Baso # (Auto) 0.0 (0.0-0.2) X10*3/uL Abs Immat Gran (auto) 0.02 (0.00-0.03) X10*3/uL Absolute Neuts (auto) 4.5 (2.0-8.3) x10*3/uL Absolute Nucleated RBC 0.000 (0.0-0.012) X10*3/uL Nucleated RBC % (auto) 0.0 (0.0-0.2) /100WBC Sodium 142 (135-145) mmol/L Potassium 3.7 (3.3-5.1) mmol/L Chloride 106 (96-108) mmol/L Carbon Dioxide 30 H (22-29) mmol/L Anion Gap 10 L (12-20) BUN 12 (9-16) mg/dL Creatinine 0.64 (0.5-1.4) mg/dL Estim Creat Clear Calc 138.5 Estimated GFR > 60 Random Glucose 120 H (60-115) mg/dL Calcium 9.4 (8.4-10.2) mg/dL Total Bilirubin 0.2 (0.0-1.0) mg/dL AST 22 (5-31) U/L ALT 18 (0-31) U/L Alkaline Phosphatase 65 (39-117) U/L Total Protein 7.4 (6.5-8.0) g/dL Albumin 4.1 (3.5-5.0) g/dL Influenza Type A (PCR) NEGATIVE (Negative) Influenza Type B (PCR) NEGATIVE (Negative) RSV RNA Qual (PCR) NEGATIVE (Negative) SARS-CoV-2 RNA (RT-PCR) NEGATIVE (Negative) Radiology Impression Discussion of test interpretation with radiology: I have reviewed the radiologist's reading. Prescription Management I considered prescription management with: Antibiotic Discharge Plan Discharge Clinical Impression: Bronchitis Patient Disposition: Home, Self-Care Instructions: Acute Bronchitis (ED) Additional Instructions: Drink plenty of fluids. Continue prednisone, albuterol and benzonatate as directed. Watch for any worsening of symptoms, shortness of breath, fevers, worsening cough, or any other concerns return immediately to the emergency department. Follow-up with your primary care provider. Call this week to schedule a follow-up appointment. Return to the emergency department if you have any worsening of symptoms, or any concerns. Get well soon! Prescriptions: No Action hydroxyzine HCl 25 mg tablet 25 mg PO TID PRN (Reason: anxiety) Qty: 20 0RF buspirone 5 mg tablet 5 mg PO BID Qty: 60 0RF Stand Alone Forms: Work/School Release Print Language: Persian
--- OUTSIDE RECORDS SUMMARY | 2025-03-11 23:25 | XMS_ITS | Clinical Summary ---
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 Name Role Phone Pcp, Unknown Primary Care [...] SMEAR 2023 Adult Td,Tdap Booster 09/11/2023 09/10/2013 INFLUENZA VACCINE (#1) 2024 COVID-19 VACCINE ( - 2024-2 6 season) 2024 HEPATITIS A VACCINES Aged Out No long [...] topic Medical Devices Not on file Insurance [facility] Care Teams Heavy Lift Rigger Relationship Specialty Start Date End Date Pcp, Unknown PCP - General 02/13/24 Additional Source Comments The information contained in this document represents components of the legal health record. It is not the complete legal health record.[facility]
--- OUTSIDE RECORDS SUMMARY | 2025-03-11 23:25 | XMS_ITS | Data Portability ---
Author Organization [facility] Address [address] [place] [address] Assessment No assessment recorded. Plan of Treatment Reminders Order Date Submit Date Provider Last Modified By Organization Details Last Modified Time Details Appointments None recorded. Lab urinalysis , dipstick 2022 023 [email or web address] 247 20990[facility], [address] [place] [address], [id number], 3 09:32:08 test, urine 2022 023 [email or web address] 247 2099[facility], [address] [place] [address], [phone], 3 09:32:08 culture, urine 2022 023 [facility], [address] [place] [address], [id number], 3 09:47:45 Referral None recorded. Procedures None recorded. Surgeries None recorded. Imaging None recorded. Medication Orders Pyridium 100 mg tablet 2022 023 [id number], [address] [place] [address], [id number], 3 09:32:27 Bactrim DS 800 mg-160 mg tablet 2022 023 [facility] #[id number], [address] [place] [address] St, [place], [place], [id number], 09:32:27 Patient TargetsNo targets recorded. Patient InstructionsNo instructions recorded. Reason for Referral None Reported. Results Created Date Observation Date Name Description Value Unit Range Abnormal Flag Note LastModifiedBy Organization Detail LastModifiedTime 04/05/19 23 04/07/2022 URINE CULTU RE, ROUTI NE urine culture, routine FINAL REPORT Not Available [facility] ([facility]) [address] [place], [address], 04/07/2022 08:06:37 04/05/1904/07/2022 URINE CULTU RE, ROUTI NE result 1 COMMEN T Mixed uroge nital meredith 10,00 0-25, 000 colon y formi ng units per mL Not Available [facility] ([facility]) [address] [facility], [place], [address], 04/07/2022 08:06:37 04/05/19 23 04/05/2022 urina lysis , dipst ick Unknown Analyte Normal = light yellow Not Available [address], [address], 04/05/2022 08:57:24 04/05/19 23 04/05/2022 urina lysis , dipst ick Unknown Analyte Normal = clear Not Available [address] [place] [address], [address], 04/05/2022 08:57:24 04/05/19 23 04/05/2022 urina lysis , dipst ick Unknown Analyte Normal = negati ve Not Available [address] [place] [address], [address], 04/05/2022 08:57:24 04/05/19 23 04/05/2022 urina lysis , dipst ick Unknown Analyte Normal = Negati ve Not Available [address] [address], [place], [address], 04/05/2022 08:57:24 04/05/1904/05/2022 urina lysis , dipst ick Unknown Analyte Normal = Negati ve Not Available [facility] [address], [place], [address], 04/05/2022 08:57:24 04/05/1904/05/2022 urina lysis , dipst ick Unknown Analyte Normal = 1.010, 1.015, 1.020 Not Available [facility] [address], [place], [address], 04/05/2022 08:57:24 04/05/19 23 04/05/2022 urina lysis , dipst ick Unknown Analyte Normal = Negati ve Not Available [facility] [address], [place], [address], 04/05/2022 08:57:24 04/05/1904/05/2022 urina lysis , dipst ick Unknown Analyte Normal = 6.5, 7.0, 7.5, 8.0 Not Available [facility] [address], [place], [address], 04/05/2022 08:57:24 04/05/1904/05/2022 urina lysis , dipst ick Unknown Analyte Normal = Negati ve Not Available [facility] [address], [place], [address], 04/05/2022 08:57:24 04/05/19 23 04/05/2022 urina lysis , dipst ick Unknown Analyte Normal = 0.2, 1.0 Not Available [address] [place] [address], [place], [address], 04/05/2022 08:57:24 04/05/19 23 04/05/2022 urina lysis , dipst ick Unknown Analyte Normal = Negati ve Not Available kiran dye [address], [place], [address], 04/05/2022 08:57:24 04/05/19 23 04/05/2022 urina lysis , dipst ick Unknown Analyte Normal = Negati ve Not Available kiran dye [address], [place], [address], 04/05/2022 08:57:24 04/05/19 23 04/05/2022 urina lysis , dipst ick Unknown Analyte Red Not Available veronica [address], [place], [place], [address], 04/05/2022 08:57:24 04/05/19 23 04/05/2022 urina lysis , dipst ick Unknown Analyte Other Not Available veronica [address], [place], [address], 04/05/2022 08:57:24 04/05/19 23 04/05/2022 urina lysis , dipst ick Unknown Analyte Negati ve Not Available kiran dye [address], [place], [address], 04/05/2022 08:57:24 04/05/19 23 04/05/2022 urina lysis , dipst ick Unknown Analyte Large Not Available veronica [address], [place], [address], 04/05/2022 08:57:24 04/05/19 23 04/05/2022 urina lysis , dipst ick Unknown Analyte 15 mg/dL Not Available kiran dye [address], [place], [address], 04/05/2022 08:57:24 04/05/19 23 04/05/2022 urina lysis , dipst ick Unknown Analyte 1.025 Not Available [facility] [address], [place], [address], 04/05/2022 08:57:24 04/05/19 23 04/05/2022 urina lysis , dipst ick Unknown Analyte Large Not Available [address], [place], [address], 04/05/2022 08:57:24 04/05/1904/05/2022 urina lysis , dipst ick Unknown Analyte 5.5 Not Available [address], [place], [address], 04/05/2022 08:57:24 04/05/19 23 04/05/2022 urina lysis , dipst ick Unknown Analyte 300 mg/dL Not Available kiran [address], [place], [address], 04/05/2022 08:57:24 04/05/19 23 04/05/2022 urina lysis , dipst ick Unknown Analyte 2.0 E.U./d L Not Available kiran [address], [place], [address], 04/05/2022 08:57:24 04/05/19 23 04/05/2022 urina lysis , dipst ick Unknown Analyte Negati ve Not Available kiran [address], [place], [address], 04/05/2022 08:57:24 04/05/19 23 04/05/2022 urina lysis , dipst ick Unknown Analyte Large Not Available [address], [address], 04/05/2022 08:57:24 04/05/1904/05/2022 pregn samira test, urine Unknown Analyte Normal = Negati ve Not Available 2100_kiran dye [address], [address], 04/05/2022 08:57:24 04/05/19 23 04/05/2022 pregn samira test, urine Unknown Analyte negati ve Not Available 2099_kiran dye [address], [address], 04/05/2022 08:57:24 Result Notes None recorded. Problems [...] temperature Respiratory rate Heart rate Oxygen saturation Systolic And Diastolic Provider Name and Address Organization Details Last Updated DateTime 3 160.02 cm 77 % 24.8 kg/m2 94950.9 3 g 97.8 [degF] 18 /min 88 /min 100 % 108/73 mm[Hg] MANAV Monique PA - [facility] 3 09:02:36 Social History Question Answer Notes LastModified by Organizat ion Details LastModified Time Tobacco Smoking Status Current Every Day Smoker MANAV sneed PA - [facility] 04/05/2022 09:00:24 What Is [...] Diagnosis SNOMED-CT Code Diagnosis ICD10 Code Diagnosis IMO Codes Diagnosis Note [id number] [facility] [address] [place] [address] 11/18/2017 17:29:29 11/18/2017 18:20:06 [id number] [address] [address] [place] [address] 09/10/2018 19:02:55 09/10/2018 20:24:35 [id number] [facility] [address] [address] [place] [address] 12/10/2016 13:16:02 12/10/2016 13:45:41 [id number] [facility] [address] [address] [place] [address] 03/07/2016 09:06:35 03/07/2016 09:43:18 [id number] [facility] [address] [address] [place] [address] 12/11/2018 19:15:11 12/11/2018 19:53:43 [id number] [address] [address] [address] [place] [address] 04/18/2017 16:27:39 04/18/2017 17:49:44 [id number] [facility] [address] [address] [place] [address] 05/14/2020 17:35:20 05/14/2020 18:26:06 [id number] [address] [address] [address] [place] [address] 02/17/2017 17:29:41 02/17/2017 18:39:10 [id number] AMBREEN CARVAJAL MD [address] [facility] [place] [address] 04/05/2022 08:09:50 04/05/2022 09:33:08 Acute urinary tract infection [id number] N39.0 Health Concerns Section Related Observation LastModified by Organization Detai ls LastModified Time None Recorded Concern Status LastModified by Organization Details LastModified Time None Recorded Advance Directives Directive None Recorded Payers Insurance Date Sequence Insurance Name Policy Number Policy Zaldivar Covered Member ID Zaldivar Member ID Guarantor Name 04/05/2022 1 [facility] [id number] Nirav Cotton [id number] Bev Burnett Notes Date Note Type Note Provider Name and Address Organization Details Recorded Time 04/05/2022 text/html Urinary Complain t FemaleReported by PatientUrinary problemsFor uti symptoms, patient reportspain during urination,blood in the urine,urinary frequency,abdominal pain, andrecurrent utibut reportsno vaginal dischargeandno recurrent uti. For severity, patient reportsmoderate. For duration, patient reportsstarted 04/04/22.ROS as noted in the HPI AMBREEN CARVAJAL MD [address] [place], [address], PA - [facility] 04/05/2022 10:00:45 OBGyn Episode No OBEpisode recorded.
--- OUTSIDE RECORDS SUMMARY | 2025-03-11 23:25 | XMS_ITS | Encounter Summary ---
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 Name Role Phone NayanIsabella ceballos Primary Care Provider Encounter Details Date Type Department Care Team (Late st Contact Info) Description 04/29/2024 Lab Requisition [facility] [address] [place] [address] Brayden Bruno MD [address] [facility] [address] [place] [address] Urinary tract infection, site not specified Social [...] Urine No growth 04/30/2024 2:23 PM EST [facility] Urine Urine specimen obtained by clean catch procedure / Unknown Non-blood Collection / Unknown 04/29/2024 2:30 PM EST 04/29/2024 6:27 PM EST us Brayden Bruno MD LAB MICROBIOLOGY - GENERAL ORDERABLES Final Result [facility] [address] [place] [address], documented in this encounter Visit Diagnoses Diagnosis Urinary tract infection, site not specified documented in this encounter Care Teams Rubber Goods Cutter Finisher Relationship Specialty Start Date End Date Isabella Lenz DO [address] [place] [address] PCP - General Pediatrics 04/20/21 documented as of this encounter
--- OUTSIDE RECORDS SUMMARY | 2025-03-11 23:25 | XMS_ITS | Clinical Summary ---
Author Organization [facility] Address [address] [place] [address] Phone Care Team Providers Care Development Vice President Name Role Phone Isabella Lenz DO Primary Care Provider Allergies No known active allergies Medications methocarbamoL (ROBAXIN) 750 mg tablet Take 1 tablet (750 mg total) by mouth 4 (four) times a day for 10 days. 20 each 02/15/2024 Active Surgical History Surgery Date Site/Laterality Comments OTHER SURGICAL HISTORY PROCEDURE: DENIES PREVIOUS SURGERY Medical History Medical History Date Comments Atopic dermatitis - DX:Atopic derm atitis Acute otitis media - DX:Acute otit is media Asthma DX:Asthma; COMME NT: none since ? 2010 Fever DX:Fever; COMMEN T: :high fever hosp [facility] Menarche age 12 yr DX:Menarche Failed hearing screening 09-11 DX:Fail ed hearing screening; COMMENT: at - NORMAL audiology eval [facility] 11-18-13 Kidney stones 02/04/2018 DX:Kidney stones Anxiety and depression 07/23/2018 DX:Anxiet y and depression Low back pain 09/17/2017 DX:Low back pain ; COMMENT: 09/15/17: seen by héctor Arteaga lumbar spine films, neg hcg. GERD (gastroesophageal reflux disease) 06/21/2020 DX:GERD (gastroesophageal reflux disease); COMMENT: 06-18 start prilosec x2m Family History Medical History Relation Name Comments Heart attack Grandparent 1 Diabetes Grandparent 2 mom Diabetes Maternal Grandmother Other: thyroid Cancer Maternal Grandmother Diabetes Mother DEYVI disease Mother Grandfather Hypertension Mother Grandparent Migraines Mother Obesity Mother Other: autism Other cousin Breast cancer Neg Hx Ovarian cancer Neg Hx Uterine cancer Neg Hx Relation Name Status Comments Father OD 4-16 Grandparent 1 Grandparent 2 Maternal Grandmother Alive Mother Alive Other Social History Tobacco Use Types Packs/Day Years Used Date Smoking Tobacco: Never Smokeless Tobacco: Never Alcohol Use Standard Drinks/Week Comments Yes 0 (1 standard drink = 0.6 oz pur e alcohol) Comments Unknown Sex and Gender Information Value Date Recorded Sex Assigned at Not on file Legal Sex Female 10:26 AM EST Gender Identity Not on file Sexual Orientation Not on file Last Filed Vital Signs Vital Sign Reading Time Taken Comments Blood Pressure 121/61 08/30/2024 11:21 PM EDT Pulse 94 08/30/2024 11:21 PM EDT Temperature 37.1 C (98.8 F) 08/30/2024 11:21 PM EDT Respiratory Rate 18 08/30/2024 11:21 PM EDT Oxygen Saturation 100% 08/30/2024 11:21 PM EDT Inhaled Oxygen Concentration - - Weight 77.1 kg (170 lb) 08/30/2024 11:21 PM EDT Height 157.5 cm (5' 2 ) 08/30/2024 11:21 PM EDT Body Mass Index 31.09 08/30/2024 11:21 PM EDT Plan of Treatment Health Maintenance Due Date Last Done Comments Gonorrhea/Chlamydia Screening 2002 Meningococcal B Vaccine (1 of 2 - Standard) 2018 HIV Screening 03/09/2022 Hepatitis C Screening 03/09/2022 Social Influencers of Health Screening 03/09/2022 Cervical Cancer Screening: Pap Smear 2023 DTaP,Tdap,and Td Vaccines (7 - Td or Tdap) 09/11/2023 09/10/2013, 12/25/2006, 04/12/2003, Additional history exists Depression Screening 03/31/2024 COVID-19 Vaccine ( - season) 2024 06/01/2021, 03/15/2021 Influenza Vaccine (#1) 2024 06/02/2012 RSV Immunization Adult Patients (1 - 1-dose 75+ series) 2077 Hepatitis B Vaccines Completed 2002, 2002, 2002 Pneumococcal Vaccine: Pediatrics (0 to 5 Years) and At-Risk Patients (6 to 49 Years) Completed 01/14/2003, 2002, 2002, Additional history exists HIB Vaccines Completed 04/12/2003, 03/31, 2002, Additional history exists IPV Vaccines Completed 12/25/2006, 03/31, 01/14/2003, Additional history exists MMR Vaccines Completed 12/25/2006, 01/14/2003 Varicella Vaccines Completed 12/25/2006, 01/14/2003 Hepatitis A Vaccines Completed 07/02/2011, 01/12/20 HPV Vaccines Completed 10/11/2014, 10/29, 09/10/2013 Meningococcal ACWY Vaccine Completed 02/04/2018, RSV Immunization Patients Under 20 months Aged Out No longer eligible based on patient's age to complete this topic Insurance [facility] [address] [place] [address] Care Teams Development Vice President Relationship Specialty Start Date End Date Isabella Lenz DO [address] [place] [address] PCP - General Pediatrics 04/20/21
[2025-03-12 00:05] VITALS: BP 113/60; PULSE 83; RESP 18; TEMP 36.7; O2SAT 98
== END 2025-03-12 00:06 | disposition home or self-care (01) ==
PROVIDERS: Emergency Provider Emergency Medicine
DX: J40 Bronchitis, not specified as acute or chronic (principal); R05.9 Cough, unspecified; Z03.818 Encounter for observation for suspected exposure to other biological agents ruled out
CPT/HCPCS: 71046; 80053; 85025; 87637; 99282; 99283

== ENCOUNTER → 2025-03-11 21:47 | Outpatient (BNV) | payer OTHER, SELFPAY | PROVIDERS: Visit Provider Radiology Diagnostic Radiology | DX: R06.02 Shortness of breath (principal) | CPT/HCPCS: 71046 ==